=== PATIENT | male | born 1955 | race Caucasian/White ===

== ENCOUNTER 2020-12-07 14:03 | Outpatient (REF) | payer MEDICARE, MEDICAID, SELFPAY ==
--- NOTE | 2020-12-08 09:04 | MHC.AU.P13 ---
Adult Audiological Evaluation Date of Visit: 12/07/20 Reason for Appointment: Annual audiological evaluation as required by his care program. Patient denies any concerns for his hearing. Does patient feel they have a hearing loss?: No Has hearing been tested previously?: Yes Previous Hearing Test Results: States he has had hearing tests in the past, does not believe hearing aids were ever recommended. Hearing Handicap Inventory: HHIE SCORE: 0 Based on HHIE score, patient has: No perceived hearing handicap Ear History: Bothersome Tinnitus/Ringing/Noises in Ears: Occasional ringing in ears, likely transient ear noise History of occupational noise exposure?: Yes: [employer], 5 years Medical History: Medical History: Diabetes, High Blood Pressure, Thyroid Disease Medical History (Other): Parkinson's Disease, kidney disease, high cholesterol Medication List: Tylenol 650 mg every 4 hrs, Amantadine HCL 50mg/5ml, Aspirin 81 mg, Bumex 1mg, Cardia-XT 180 mg, Humalog 20 unites/3x daily, Levemir 100 units, Levoxyl 125 mcg, Losartan 25 mg, Potassium 20 MEQ, Pravastatin 40 mg, Vitamin D 4000 units, Triamcinolone cream 0.5%, Topamax 100 mg, Lamictal 300 mg, Prozac 20 mg, Risperdal injectable 50 mg every 14 days, Trazodone 100 mg Otoscopy: Right Ear: Unremarkable Left Ear: Unremarkable Tympanometry: Tympanometry performed due to: To assess integrity of the middle ear system Right Ear: Normal Middle Ear System (Type A) Left Ear: Normal Middle Ear System (Type A) Hearing Evaluation: Transducer(s) Used: Insert Earphones Method: Conventional Audiometry Stimuli Used: Pure Tones Right Ear: Description of Hearing: Normal hearing from 250-8000 Hz. Left Ear: Description of Hearing: Normal hearing from 250-8000 Hz. Speech Recognition Threshold (SRT): Method Used: Monitored Live Voice Stimuli Used: Spondee Words Right Ear: 10 dBHL Left Ear: 15 dBHL Word Discrimination: Method: Recorded Lists Word Lists Used: NU-6 Right Ear: 96% at 50 dBHL Left Ear: 96% at 55 dBHL Recommendations: No further audiological action is indicated at this time. Audiological re-evaluation if changes are noted. Follow-up as needed per PCP. Diagnosis: Primary Diagnosis: H93.293 Abnormal Auditory Perception Services Performed: Services Performed: Pure Tone- Air (CPT 09826) Speech Audiometry Threshold, with Speech Recognition (CPT 33078) Tympanometry (CPT 39934) Signature: Provider: Freida Jara, CCC-A
== END 2020-12-07 14:04 | disposition home or self-care (01) ==
LOC: HO.SH 14:03
PROVIDERS: Visit Provider Internal Medicine
DX: H93.293 Other abnormal auditory perceptions, bilateral (principal)
CPT/HCPCS: 92552; 92556; 92567